=== PATIENT | female | born 1990 | race Two or more races ===

== ENCOUNTER 2017-01-05 11:08 | Emergency (ER) ==
[2017-01-05 11:15] VITALS: BP 101/65; TEMP 98.3; BMI 25.2
--- NOTE | 2017-01-05 11:32 | ED.PDOC ---
General ED Provider: Dr. WILLIAM MCGUIRE JR Chief Complaint: Abdominal Pain Stated Complaint: pt has been having diarrhea for 1 week. also having nausea and some abd pain. took a test 3 days ago that was positive[End]1 week. 98.3 76 18 99 101/65 10/10 watery diarrhe nausea suprapubic abdominal pain Time Seen by Physician: 11:34 Mode of Arrival: Walk-In Information Source: Patient Exam Limitations: No limitations Nursing and Triage Documentation Reviewed and Agree: No Review of Systems - Review Of Systems Constitutional: Reports: No symptoms Eyes: Reports: No symptoms Ears, Nose, Mouth, Throat: Reports: No symptoms Respiratory: Reports: No symptoms Cardiac: Reports: No symptoms GI: Reports: Abdominal pain (suprapubic) : Reports: No symptoms (note poor kosovan vocabulary) Musculoskeletal: Reports: No symptoms Skin: Reports: No symptoms Neurological: Reports: No symptoms Endocrine: Reports: No symptoms Hematologic/Lymphatic: Reports: No symptoms All Other Systems: Other Past Medical History - Past Medical History Previously Healthy: Yes Endocrine: Reports: None Cardiovascular: Reports: None Respiratory: Reports: None Hematological: Reports: None Gastrointestinal: Reports: None Genitourinary: Reports: None Neuro/Psych: Reports: None Musculoskeletal: Reports: None Cancer: Reports: None Last Menstrual Period: nov 27 - Surgical History General Surgical History: Reports: None - Family History Family History: Reports: None - Social History Smoking Status: Never smoker Hx Substance Use: No Alcohol Screening: None Physical Exam - Physical Exam Appearance: Well-appearing Eyes: KENDRICK, EOMI, Conjunctiva clear ENT: Ears normal, Nose normal, Oropharynx normal Neck: Supple Respiratory: Airway patent, Breath sounds clear, Breath sounds equal, Respirations nonlabored Cardiovascular: RRR, Pulses normal, No rub, No murmur GI/: Soft, Nontender, No masses, Bowel sounds normal, No Organomegaly Musculoskeletal: Normal strength, ROM intact, No edema, No calf tenderness Skin: Warm, Dry, Normal color Neurological: Sensation intact, Motor intact, Reflexes intact, Cranial nerves intact, Alert, Oriented Psychiatric: Affect appropriate, Mood appropriate Critical Care Note - Critical Care Note Total Time (mins): 0 Course - Course Hematology/Chemistry: 01/05/17 11:45 01/05/17 11:45 Orders, Labs, Meds: Lab Review 01/05/17 01/05/17 11:35 11:45 WBC 8.98 RBC 4.29 Hgb 13.9 Hct 39.8 MCV 92.8 MCH 32.4 H MCHC 34.9 RDW Coeff of Onesimo 11.6 Plt Count 345 Immature Gran % (Auto) 0.3 Neut % (Auto) 73.2 Lymph % (Auto) 17.5 [place] % (Auto) 8.0 Eos % (Auto) 0.7 Baso % (Auto) 0.3 Immature Gran # (Auto) 0.0 Neut # 6.6 Lymph # 1.6 Dawson # 0.7 Eos # 0.1 Baso # 0.0 Sodium 136 Potassium 3.5 Chloride 105 Carbon Dioxide 23 Anion Gap 11.5 BUN 13 Creatinine 0.79 Estimated GFR (MDRD) 87.00 BUN/Creatinine Ratio 16.45 Glucose 88 Calcium 9.1 Total Bilirubin 0.56 AST 11 L ALT 9 L Alkaline Phosphatase 47 Total Protein 8.0 Albumin 4.0 Globulin 4.0 Albumin/Globulin Ratio 1.00 Amylase 107 Lipase 24 HCG, Quant 92812.60 Urine Color Yellow Urine Clarity Clear Urine pH 6.5 Ur Specific [place] 1.020 Urine Protein Negative Urine Glucose (UA) Negative Urine Ketones Negative Urine Blood Negative Urine Nitrite Negative Urine Bilirubin Negative Urine Urobilinogen 0.2 Ur Leukocyte Esterase 1+ Urine Microscopic RBC 2-5 Urine Microscopic WBC 2-5 Ur Squamous Epith Cells 10-20 Urine Bacteria 1+ H. pylori IgG Antibody Negative Orders Category Date Time Status ED IV/MEDIPORT/POWERPORT .ONCE EMERGENCY 01/05/17 11:29 Active AMYLASE Stat LAB 01/05/17 11:45 Completed CBC W/ AUTO DIFF Stat LAB 01/05/17 11:45 Completed COMPREHENSIVE METABOLIC PANEL Stat LAB 01/05/17 11:45 Completed H. PYLORI SCREEN Stat LAB 01/05/17 11:45 Completed HCG,QUANTITATIVE Stat LAB 01/05/17 11:45 Completed LIPASE Stat LAB 01/05/17 11:45 Completed STOOL CULTURE Stat LAB 01/05/17 Ordered URINALYSIS C & S IF INDICATED Stat LAB 01/05/17 11:35 Completed URINE CULTURE Stat LAB 01/05/17 12:03 Received 0.9 % Sodium Chloride [Saline Flush] MEDS 01/05/17 11:29 Active 1 syr IVF PRN PRN U/S OB/TV Stat RADS 01/05/17 11:31 Ordered Medications Generic Name Dose Route Start Last Admin Trade Name Freq PRN Reason Stop Dose Admin Sodium Chloride 1 syr 01/05/17 11:29 Saline Flush IVF PRN PRN To flush IV Vital Signs: Temp Pulse Resp BP Pulse Ox 01/05/17 11:08 98.3 F 76 18 101/65 99 Departure - Departure Time of Disposition: 12:55 Disposition: HOME SELF-CARE Discharge Problem: UTI (urinary tract infection) during , Instructions: Urinary Tract Infection in Women (ED), Urinary Tract Infection in (ED) Condition: Good Pt referred to PMD for follow-up: Yes Prescriptions: Cephalexin [Keflex] 500 mg PO QID #28 capsule Allergies/Adverse Reactions: Allergies No Known Allergies Allergy (Verified 01/05/17 11:15) Home Medications: Ambulatory Orders Cephalexin [Keflex] 500 mg PO QID #28 capsule 01/05/17
[2017-01-05 11:48] LABS: BASOPHILS % (AUTO) 0.3 % (0.0-3.0); EOSINOPHILS # (AUTO) 0.1 K/ul (0.0-0.7); EOSINOPHILS % (AUTO) 0.7 % (0.0-7.0); HEMATOCRIT 39.8 % (37.0-47.0); HEMOGLOBIN 13.9 g/dl (12.0-16.0); IMMATURE GRANULOCYTE % (AUTO) 0.3 % (0.0-5.0); LYMPHOCYTES # (AUTO) 1.6 K/uL (0.60-3.4); LYMPHOCYTES % (AUTO) 17.5 (10.0-50.0); MEAN CORPUSCULAR HEMOGLOBIN 32.4 pg (27.0-31.0); MEAN CORPUSCULAR HGB CONC 34.9 (31.8-35.4); MEAN CORPUSCULAR VOLUME 92.8 fl (81.0-99.0); MONOCYTES # (AUTO) 0.7 K/uL (0.4-2.0); NEUTROPHILS # (AUTO) 6.6 K/ul (2.0-6.9); NEUTROPHILS % (AUTO) 73.2; PLATELET COUNT 345 10^3/uL (140-440); RED BLOOD COUNT 4.29 10^6/ul (4.20-5.40); WHITE BLOOD COUNT 8.98 K/ul (4.6-10.2)
[2017-01-05 11:51] LABS: BILIRUBIN,URINE Negative (NEGATIVE); KETONES,URINE Negative (NEGATIVE); LEUKOCYTE ESTERASE ,URINE 1+ (NEGATIVE); NITRITE,URINE Negative (NEGATIVE); PH,URINE 6.5 (5-9); PROTEIN,URINE Negative (NEGATIVE); URINE, BLOOD Negative (NEGATIVE)
[2017-01-05 11:59] LABS: ADD URINE MICROSCOPIC YES
[2017-01-05 12:01] LABS: H. PYLORI ANTIBODY NEGATIVE (NEGATIVE); H.PYLORI INTERNAL QC INTERNAL QC VALID
[2017-01-05 12:04] LABS: BACTERIA,URINE 1+ (NOT PRESENT)
[2017-01-05 12:07] LABS: ANION GAP 11.5; BILIRUBIN,TOTAL 0.56 mg/dL (0.00-1.20); BUN/CREATININE RATIO 16.45; CALCIUM 9.1 mg/dL (8.2-10.2); CREATININE 0.79 mg/dL (0.60-1.30); POTASSIUM 3.5 mmol/L (3.5-5.10)
--- NOTE | 2017-01-05 13:18 | US ---
Examination: Transvaginal ultrasonographic evaluation of the pelvis. Transvaginal probe was utilized for better anatomic visualization. Comparison: None available. Reason for study: 6 weeks with abdominal pain. FINDINGS: The uterus measures approximately 10.42 x 5.84 x 6.61 cm. There is a single intrauterine with a crown-rump length measuring 1.01 cm which gives an average gestational age of 7 we eks 1 day. The yolk sac measures 0.30 cm. The heart rate measures 151 beats per minute. There is a 0.92 x 0.56 x 0.86 cm fluid collection that likely represents a subchorionic hemorrhage. The right ovary measures approximately 4 4.15 x 3.24 x 2.73 cm with normal appearing echotexture and vascular flow. There is an anechoic cystic structure adjacent to the right ovary that measures 3.0 7 x 2.03 x 2.28 cm. The left ovary was not imaged secondary to overlying bowel gas. Impression: 1. Single intrauterine with estimated gestational age of 7 weeks 1 day and a heart rate of 151 beats per minute. 2. Likely sub-centimeter subchorionic hemorrhage.
== END 2017-01-05 13:46 | disposition home or self-care (01) ==
LOC: ED 11:08
DX: O23.40 Unspecified infection of urinary tract in pregnancy, unspecified trimester (principal)
CPT/HCPCS: 36415; 80053; 81001; 82150; 83690; 84702; 85025; 86677; 87086; 99283

== ENCOUNTER 2018-10-11 12:10 | Emergency (ER) ==
[2018-10-11 12:16] VITALS: BP 107/75; TEMP 98.3; BMI 25.9
[2018-10-11 13:13] LABS: URINE PREGNANCY TEST NEGATIVE (NEGATIVE)
--- NOTE | 2018-10-11 13:49 | DI ---
EXAM: CHEST FRONTAL AND LATERAL VIEWS HISTORY: Cough. COMPARISON: None FINDINGS: Heart size and mediastinal contour within normal limits. No acute infiltrates. Anay l vascularity with no pleural fluid or pneumothorax. The bony thorax has no acute finding. Mild sco liosis. IMPRESSION: No acute process.
--- NOTE | 2018-10-11 13:50 | ED.PDOC ---
General ED Provider: Dr. HAYLEE PINEDA Chief Complaint: Nausea/Vomiting Stated Complaint: nausea, vomiting diarrhea Time Seen by Physician: 12:20 (seen with nursing staff) Mode of Arrival: Walk-In Information Source: Patient Exam Limitations: No limitations Nursing and Triage Documentation Reviewed and Agree: Yes Does patient meet sepsis criteria?: No System Inflammatory Response Syndrome: Not Applicable Sepsis Protocol: For patient's 13 years and over: Temp is 96.8 and below OR 101 and greater Pulse >90 BPM Resp >20/minute Acutely Altered Mental Status Are patient's symptoms suggestive of a new infection, such as: -Pneumonia -Skin, Soft Tissue -Endocarditis -UTI -Bone, Joint Infection -Implantable Device -Acute Abdominal Infection -Wound Infection -Meningitis -Blood Stream Catheter Infection -Unknown GI Complaint Exam - Vomiting/Diarrhea Complaint/Exam Onset/Duration: 1 day Symptoms Are: Resolved Episodes of Vomiting over last 24 Hours: 0 Episodes of Diarrhea Over Last 24 Hours: 2 Initial Severity: Mild Current Severity: None Character of Vomiting: Reports: Non-bilious Character of Diarrhea: Reports: Watery Aggravating: Reports: None Alleviating: Reports: None Associated Signs and Symptoms: Denies: Dizziness, Light-headedness, Melena, Hematemesis, Fever, Abdominal pain, Cramping Recent Positive Test: No Use of Oral Contraceptives: No Use of Depoprovera: No Compliant With Contraceptive Use: No Non-GI Risk Factors: Reports: None Surgical Obstruction Risk Factors: Reports: None Related Surgical History: Reports: None Abdominal Findings: Present: None Differential Diagnoses: Viral Gastroenteritis, UTI Review of Systems - Review Of Systems Constitutional: Reports: No symptoms Eyes: Reports: No symptoms Ears, Nose, Mouth, Throat: Reports: No symptoms Respiratory: Reports: No symptoms Cardiac: Reports: No symptoms GI: Reports: Abdominal pain, Diarrhea, Nausea, Vomiting : Reports: No symptoms Musculoskeletal: Reports: No symptoms Skin: Reports: No symptoms Neurological: Reports: No symptoms Endocrine: Reports: No symptoms Hematologic/Lymphatic: Reports: No symptoms All Other Systems: Reviewed and Negative Past Medical History - Past Medical History Previously Healthy: Yes Endocrine: Reports: None Cardiovascular: Reports: None Respiratory: Reports: None Hematological: Reports: None Gastrointestinal: Reports: None Genitourinary: Reports: None Neuro/Psych: Reports: None Musculoskeletal: Reports: None Cancer: Reports: None Last Menstrual Period: 10/02/18 - Surgical History General Surgical History: Reports: None - Family History Family History: Reports: None - Social History Smoking Status: Never smoker Hx Substance Use: No Alcohol Screening: None Physical Exam - Physical Exam Appearance: Well-appearing, No pain distress, Well-nourished Eyes: KENDRICK, EOMI, Conjunctiva clear ENT: Ears normal, Nose normal, Oropharynx normal Respiratory: Airway patent, Breath sounds clear, Breath sounds equal, Respirations nonlabored Cardiovascular: RRR, Pulses normal, No rub, No murmur GI/: Soft, Nontender, No masses, Bowel sounds normal, No Organomegaly Musculoskeletal: Normal strength, ROM intact, No edema, No calf tenderness Skin: Warm, Dry, Normal color Neurological: Sensation intact, Motor intact, Reflexes intact, Cranial nerves intact, Alert, Oriented Psychiatric: Affect appropriate, Mood appropriate Interpretation - Radiology Interpretation Radiology Interpretation By: Radiologist Radiology Results: No acute changes Critical Care Note - Critical Care Note Total Time (mins): 0 Course - Course Hematology/Chemistry: 10/11/18 12:55 10/11/18 12:55 Orders, Labs, Meds: Lab Review 10/11/18 10/11/18 10/11/18 12:55 12:55 12:55 WBC 13.20 H RBC 4.57 Hgb 14.5 Hct 41.7 MCV 91.2 MCH 31.7 H MCHC 34.8 RDW Coeff of Onesimo 12.4 Plt Count 333 Immature Gran % (Auto) 0.3 Neut % (Auto) 91.3 Lymph % (Auto) 4.2 L [place]ha % (Auto) 3.7 Eos % (Auto) 0.3 Baso % (Auto) 0.2 Immature Gran # (Auto) 0.0 Neut # (Auto) 12.1 H Lymph # (Auto) 0.6 Desha # (Auto) 0.5 Eos # (Auto) 0.0 Baso # (Auto) 0.0 Sodium 137.0 Potassium 4.16 Chloride 103.1 Carbon Dioxide 25.4 Anion Gap 12.66 BUN 17.7 H Creatinine 0.83 Estimated GFR (MDRD) 81.00 BUN/Creatinine Ratio 21.32 Glucose 112.9 H Calcium 9.08 Total Bilirubin 1.75 H AST 24.2 ALT 13.9 Alkaline Phosphatase 65.3 Total Protein 8.29 H Albumin 4.70 Globulin 3.59 Albumin/Globulin Ratio 1.30 Urine Color Yellow Urine Clarity Clear Urine pH 6.5 Ur Specific [place] 1.020 Urine Protein 1+ Urine Glucose (UA) Negative Urine Ketones Trace Urine Blood Trace-intact Urine Nitrite Negative Urine Bilirubin 1+ Urine Urobilinogen 0.2 Ur Leukocyte Esterase Trace Urine Microscopic RBC 2-5 Ur Squamous Epith Cells 20-30 Urine Mucus 3+ Urine Test Influ A Molecular Assay Influ B Molecular Assay 10/11/18 10/11/18 12:55 12:55 WBC RBC Hgb Hct MCV MCH MCHC RDW Coeff of Onesimo Plt Count Immature Gran % (Auto) Neut % (Auto) Lymph % (Auto) Desha % (Auto) Eos % (Auto) Baso % (Auto) Immature Gran # (Auto) Neut # (Auto) Lymph # (Auto) Desha # (Auto) Eos # (Auto) Baso # (Auto) Sodium Potassium Chloride Carbon Dioxide Anion Gap BUN Creatinine Estimated GFR (MDRD) BUN/Creatinine Ratio Glucose Calcium Total Bilirubin AST ALT Alkaline Phosphatase Total Protein Albumin Globulin Albumin/Globulin Ratio Urine Color Urine Clarity Urine pH Ur Specific [place] Urine Protein Urine Glucose (UA) Urine Ketones Urine Blood Urine Nitrite Urine Bilirubin Urine Urobilinogen Ur Leukocyte Esterase Urine Microscopic RBC Ur Squamous Epith Cells Urine Mucus Urine Test Negative Influ A Molecular Assay Negative by naat Influ B Molecular Assay Negative by naat Orders Category Date Time Status CBC W/ AUTO DIFF Stat LAB 10/11/18 12:55 Completed COMPREHENSIVE METABOLIC PANEL Stat LAB 10/11/18 12:55 Completed FLU A/B MOLECULAR Stat LAB 10/11/18 12:55 Completed MOLECULAR GROUP A STREP Stat LAB 10/11/18 12:55 Completed URINALYSIS C & S IF INDICATED Stat LAB 10/11/18 12:55 Completed URINE Stat LAB 10/11/18 12:55 Completed CHEST, 2 VIEWS PA & LAT Stat RADS 10/11/18 12:[address] ABDOMEN/PELVIS WO CONTRAST Stat RADS 10/11/18 12:43 Taken Vital Signs: Temp Pulse Resp BP Pulse Ox 10/11/18 12:10 98.3 F 94 H 20 107/75 98 Departure - Departure Time of Disposition: 13:49 Disposition: HOME SELF-CARE Discharge Problem: Nausea, Vomiting, Acute gastroenteritis Instructions: Gastroenteritis (ED) Condition: Good Pt referred to PMD for follow-up: Yes IPMP verified?: No Additional Instructions: Please call your Family Physician as soon as possible to schedule a follow-up appointment. Allergies/Adverse Reactions: Allergies No Known Allergies Allergy (Verified 10/11/18 12:16) Home Medications: Ambulatory Orders 1 [No Reported Medications] 10/11/18
--- NOTE | 2018-10-11 14:21 | CT ---
EXAM: CT ABDOMEN AND PELVIS HISTORY: Mid abdominal pain TECHNIQUE: CT abdomen and pelvis without intravenous contrast. Images were reconstructed using 5 mm section thickness. Reformations were prepared. COMPARISON: None FINDINGS: Diagnostic limitations may exist without including contrast enhanced images. No focal hepatic or spl enic lesions. There are multiple bilateral renal calcifications suggesting calculi largest in the up per left organ at about 5 mm. No hydronephrosis or perinephric fat stranding. Ureters cannot be fol lowed well although visualized portions are clear. Abdominal aorta is within normal limits. No gastric distension. An appendix, if present is not clearly seen. No right lower quadrant inflamm ation. Bowel gas pattern is nonobstructive. Uterus and urinary bladder within limits. Trace amount of pelvic ascites likely physiologic in nature. The pelvic organs are poorly defined. There is an anterior bulging of the rectus fascia at the level of the umbilicus without temo discont inuity. The base of the bulge is about 5.6 cm transverse and there are a few loops of bowel in this region without strangulation. Bones reveal no acute abnormality. No free air. IMPRESSION: 1. There is an anterior bulging of the rectus fascia at the level of the umbilicus without temo dis continuity. The base of the bulge is about 5.6 cm transverse and there are a few loops of bowel in t his region without strangulation. 2. Multiple bilateral renal calculi without evidence of renal collecting system obstruction currentl y. 3. Trace amount of pelvic ascites, possibly physiologic.
== END 2018-10-11 14:37 | disposition home or self-care (01) ==
LOC: ED 12:10
DX: K52.9 Noninfective gastroenteritis and colitis, unspecified (principal)
CPT/HCPCS: 36415; 80053; 81001; 81025; 85025; 87502; 87651; 99283